=== PATIENT | female | born 1995 | race Caucasian/White ===

== ENCOUNTER 2021-05-30 08:32 | Emergency (ER) | payer MEDICAID, SELFPAY ==
[2021-05-30 08:38] VITALS: BP 155/90; PULSE 106; O2SAT 98
[2021-05-30 08:44] VITALS: BP 140/90; PULSE 100; RESP 18; TEMP 36.6; O2SAT 97; BMI 25.0
--- NOTE | 2021-05-30 10:01 | PC.NURSE ---
eating breakfast, nad
--- NOTE | 2021-05-30 11:29 | ED.GENADULT ---
HPI - General Adult General Chief complaint: General Medical Stated complaint: withdrawl Time Seen by Provider: 05/30/21 11:25 History of Present Illness HPI narrative: Patient is a 25-year-old female with a history of heroin abuse. Last use was 2 days prior. Patient presented today with having total body ache thinking that she can get detox here at [place]. Patient denies any fever chills. No cough no congestion or upper respiratory symptoms. Patient did not use any heroin for the last 36-48 hours. Does not think she is . Patient does not have any suicidal homicidal ideations. Wants to stop using drugs. Related Data Previous Rx's Medication Instructions Recorded ondansetron 4 mg disintegrating 4 mg PO TID PRN 5 Days #10 tab 05/30/21 tablet Allergies Allergy/AdvReac Type Severity Reaction Status Date / Time No Known Allergies Allergy Verified 05/30/21 11:28 Review of Systems Review of Systems: Positive generalized body ache positive nausea No fever no chills no coughing or congestion or upper respiratory symptoms All systems reviewed otherwise negative Yes all other systems are reviewed and are negative PENDING SALE TO [facility] Past Medical History Attestation statement: The following information was validated with the patient. Medical History Asthma Carpal tunnel syndrome Social History Social History Advance Directives: No Advance Directives Information Provided: No Patient : No Physical Exam Vital Signs: Vital Signs: Last Vital Signs Temp 98.2 F 05/30/21 13:33 Pulse 100 05/30/21 13:33 Resp 20 05/30/21 13:33 BP 111/71 05/30/21 13:33 Pulse Ox 98 05/30/21 13:33 Body Mass Index 25.0 Appearance: Alert. Oriented X3. No acute distress. Eyes: Pupils equal, round and reactive to light. ENT: Pharynx normal. Neck: Normal inspection. Neck supple. No lymph nodes noted. No crepitus CVS: Normal heart rate and rhythm. Pulses normal. Normal S1 and S2 Respiratory: No respiratory distress. Breath sounds normal. No Wheezing. No rales Abdomen: Soft and nontender. No rigidity. No distention. good BS x4 Skin: Skin warm and dry. Normal skin color. Normal skin turgor. Extremities: No lower extremity edema. Neurovascular intact to all extremities. No Lacerations. No Rash Neuro: Oriented X 3. No motor deficit. No sensory deficit. Moving all extermities. No slurred speech Medical Decision Making MDM Narrative Medical decision making narrative: Will give patient a dose of Suboxone. Will give some clonidine and Zofran for symptom support. We will go ahead and have patient get seen by substance abuse counseling. Discharge Plan Discharge Clinical Impression: Opioid abuse with withdrawal Patient Disposition: Home, Self-Care Instructions: Narcotic Withdrawal (ED), Narcotic Use Disorder (ED) Prescriptions: New ondansetron 4 mg tablet,disintegrating 4 mg PO TID PRN (Reason: nausea and vomiting) 5 Days Qty: 10 RF: 0 Referrals: Physician,None [Primary Care Provider] - 2 days (Please stop using recreational drugs. Please follow direction as per the drug abuse counselor.)
[2021-05-30 11:51] VITALS: BP 140/90; PULSE 100
[2021-05-30] MEDS: Ondansetron ODT 4 MG TAB.RAPDIS TRANSLINGU (11:51)
[2021-05-30] MEDS: cloNIDine HCL 0.1 MG TABLET PO (11:51)
[2021-05-30] MEDS: Buprenorphine/Naloxone 8/2 mg FILM 1 FILM SUBLINGUAL (11:51)
--- NOTE | 2021-05-30 11:54 | PC.NURSE ---
patient a&ox3, pt medicated per order, recovery team speaking with patient
--- NOTE | 2021-05-30 12:00 | MHC.RECOVRN ---
Met with pt in [facility] after request from provider. Pt reports last opiate use on Saturday and is currently experiencing withdrawal symptoms. Pt reports nausea, diarrhea, hot/cold. Pt given Suboxone, 8/2 mg, waiting for effect. Pt would like to go to [facility]. Case discussed with CARE Team as well as Tawny Marshall APRN.
[2021-05-30 13:33] VITALS: BP 111/71; PULSE 100; RESP 20; TEMP 36.8; O2SAT 98
== END 2021-05-30 14:50 | disposition home or self-care (01) ==
PROVIDERS: Emergency Provider Emergency Medicine Emergency Medical Services
DX: F11.13 Opioid abuse with withdrawal (principal); R11.0 Nausea; F32.9 Major depressive disorder, single episode, unspecified
CPT/HCPCS: 99283; 99284

== ENCOUNTER 2021-06-11 17:36 | Emergency (ER) | payer MEDICAID, SELFPAY ==
[2021-06-11 17:58] VITALS: BP 114/69; PULSE 97; RESP 20; TEMP 36.8; O2SAT 100
[2021-06-11 18:00] VITALS: RESP 16; BMI 24.2
--- NOTE | 2021-06-11 18:13 | PC.NURSE ---
patient states she has not had a period in 4 years, does not have a pharmacy because she is homeless and denies taking any prescribed medications
--- NOTE | 2021-06-11 18:16 | ED_ITS ---
HPI - Psych General Chief Complaint: Psychiatric Symptoms Stated Complaint: SI Time Seen by Provider: 06/11/21 18:15 Source: patient Mode of arrival: EMS Limitations: no limitations History of Present Illness HPI Narrative: Patient with history of substance abuse homeless since age 9 brought by EMS for feeling more depressed making suicidal statements with plan to overdose patient already use heroin earlier today denies any suicidal plan at this time cyst no place to live and will be okay if she finds a place to live Related Data Previous Rx's Medication Instructions Recorded ondansetron 4 mg disintegrating 4 mg PO TID PRN 5 Days #10 tab 05/30/21 tablet Allergies Allergy/AdvReac Type Severity Reaction Status Date / Time bee pollen [bee stings] Allergy Rash Verified 06/11/21 18:11 black pepper Allergy Rash Verified 06/11/21 18:11 latex Allergy Rash Verified 06/11/21 18:11 oxcarbazepine Allergy Rash Verified 06/11/21 18:12 [From Trileptal] red velvet cake Allergy Rash Uncoded 06/11/21 18:11 Review of Systems Review of Systems: Constitutional : No Fever, No Chills ENT/Mouth : No Ear Pain, No Nasal Congestion, No sore throat Eyes: No Eye Pain, No Swelling, No Redness Cardiovascular : No Chest Pain, No SOB Respiratory : No Cough, No Sputum, No Dyspnea Gastrointestinal : No Nausea, No Vomiting, No Diarrhea, No Hematochezia, No Melena Genitourinary : No Dysuria, No Urinary Frequency, No Hematuria Musculoskeletal : No Myalgias Skin : No Skin Lesions, No rash Neuro : No Weakness, No Numbness, No Paresthesias, No Dizziness, No Headache Psych : -ve Anxiety, positive Depression, positive SI Heme/Lymph: No Lymphadenopathy Endocrine : No Polyuria, No Polydipsia PMFSH Past Medical History Medical History Asthma Carpal tunnel syndrome Social History Social History Advance Directives: No Advance Directives Information Provided: No Patient : No Physical Exam Vital Signs: Vital Signs: Last Vital Signs Temp 99.0 F 06/11/21 20:34 Pulse 97 06/11/21 20:34 Resp 16 06/11/21 20:34 BP 114/69 06/11/21 20:34 Pulse Ox 98 06/11/21 20:34 Body Mass Index 24.2 Appearance: Alert. Oriented X3. No acute distress. Eyes: PERRLA, No Nystagmus ENT: Pharynx normal. Oral Mucosa moist Neck: Normal inspection. Neck supple. CVS: Normal heart rate and rhythm. Pulses normal. Respiratory: No respiratory distress. Equal air entry bilateral, no wheezing/rales/rhonchi Abdomen: Soft and nontender. Bowel sounds are present, no mass palpable, no CVA tenderness Skin: Skin warm and dry. Normal skin color. Normal skin turgor. IVDA track m arks Extremities: No lower extremity edema. No calf tenderness psych: No current suicidal ideation mood stable no hallucination or delusion Neuro: Oriented X 3. No motor deficit. No sensory deficit.No cerebellar signs , cranial nerves II-XII intact MDM - Psych Lab Data Attestation: I reviewed the patient's lab results. Result diagrams: 06/11/21 18:13 06/11/21 18:13 Labs: Lab Results 06/11/21 06/11/21 06/11/21 Range/Units 18:13 18:13 18:13 WBC 7.9 (4.8-10.8) X10*3/uL RBC 4.44 (4.20-5.50) X10*6/uL Hgb 11.7 L (12.0-16.0) g/dl Hct 36.8 L (37-47) % MCV 82.9 (80-98) fL MCH 26.4 L (27.0-33.0) pg MCHC 31.8 (31.0-35.0) g/dl RDW 15.7 (11.0-16.0) % Plt Count 245 (160-400) X10*3/uL MPV 9.0 L (9.4-12.3) fL Immature Gran % (Auto) 0.5 H (0.0-0.4) % Neut % (Auto) 69.9 (45-73) % Lymph % (Auto) 21.5 (20-40) % [place] % (Auto) 6.7 (2-11) % Eos % (Auto) 1.1 (0-4) % Baso % (Auto) 0.3 (0-2) % Lymph # (Auto) 1.7 (1.2-4.9) X10*3/uL [place] # (Auto) 0.5 (0.1-1.2) X10*3/uL Eos # (Auto) 0.1 (0.0-0.4) X10*3/uL Baso # (Auto) 0.0 (0.0-0.2) X10*3/uL Abs Immat Gran (auto) 0.04 H (0.00-0.03) X10*3/uL Absolute Neuts (auto) 5.6 (2.0-8.3) X10*3/uL Absolute Nucleated RBC 0.000 (0.0-0.012) X10*3/uL Nucleated RBC % (auto) 0.0 (0.0-0.2) /100WBC Sodium (135-145) mmol/L Potassium (3.3-5.1) mmol/L Chloride (96-108) mmol/L Carbon Dioxide (22-29) mmol/L Anion Gap (12-20) BUN (9-16) mg/dL Creatinine (0.5-1.4) mg/dL Estim Creat Clear Calc Estimated GFR Random Glucose (60-115) mg/dL Urine Test (NEGATIVE) Urine Opiates Screen POSITIVE H (Not Detect) Urine Fentanyl Screen POSITIVE H (Not Detect) Ur Barbiturates Screen Not Detected (Not Detect) Ur Phencyclidine Scrn Not Detected (Not Detect) Ur Amphetamines Screen Not Detected (Not Detect) U Benzodiazepines Scrn Not Detected (Not Detect) Urine Cocaine Screen POSITIVE H (Not Detect) U Marijuana (THC) Screen POSITIVE H (Not Detect) Ethyl Alcohol < 10 mg/dL COVID-19 ([facility]) (Negative) COVID-19 Clin Com 06/11/21 06/11/21 06/11/21 Range/Units 18:13 18:13 18:13 WBC (4.8-10.8) X10*3/uL RBC (4.20-5.50) X10*6/uL Hgb (12.0-16.0) g/dl Hct (37-47) % MCV (80-98) fL MCH (27.0-33.0) pg MCHC (31.0-35.0) g/dl RDW (11.0-16.0) % Plt Count (160-400) X10*3/uL MPV (9.4-12.3) fL Immature Gran % (Auto) (0.0-0.4) % Neut % (Auto) (45-73) % Lymph % (Auto) (20-40) % [place] % (Auto) (2-11) % Eos % (Auto) (0-4) % Baso % (Auto) (0-2) % Lymph # (Auto) (1.2-4.9) X10*3/uL [place] # (Auto) (0.1-1.2) X10*3/uL Eos # (Auto) (0.0-0.4) X10*3/uL Baso # (Auto) (0.0-0.2) X10*3/uL Abs Immat Gran (auto) (0.00-0.03) X10*3/uL Absolute Neuts (auto) (2.0-8.3) X10*3/uL Absolute Nucleated RBC (0.0-0.012) X10*3/uL Nucleated RBC % (auto) (0.0-0.2) /100WBC Sodium 139 (135-145) mmol/L Potassium 4.0 (3.3-5.1) mmol/L Chloride 104 (96-108) mmol/L Carbon Dioxide 27 (22-29) mmol/L Anion Gap 12 (12-20) BUN 29 H (9-16) mg/dL Creatinine 0.88 (0.5-1.4) mg/dL Estim Creat Clear Calc 89.8 Estimated GFR > 60 Random Glucose 76 (60-115) mg/dL Urine Test NEGATIVE (NEGATIVE) Urine Opiates Screen (Not Detect) Urine Fentanyl Screen (Not Detect) Ur Barbiturates Screen (Not Detect) Ur Phencyclidine Scrn (Not Detect) Ur Amphetamines Screen (Not Detect) U Benzodiazepines Scrn (Not Detect) Urine Cocaine Screen (Not Detect) U Marijuana (THC) Screen (Not Detect) Ethyl Alcohol mg/dL COVID-19 ([facility]) Negative (Negative) COVID-19 Clin Com See Note Discharge Plan Discharge Clinical Impression: Polysubstance abuse Depression Qualifiers: Depression Type: major depressive disorder Major depression recurrence: recurrent Active/Remission status: currently active Major depression episode severity: moderate Qualified Code(s): F33.1 - Major depressive disorder, recurr ent, moderate Prescriptions: No Action ondansetron 4 mg tablet,disintegrating 4 mg PO TID PRN (Reason: nausea and vomiting) 5 Days Qty: 10 RF: 0
[2021-06-11 18:19] LABS: MANUAL DIFF FLAG NO
[2021-06-11 18:24] LABS: UPreg QC Valid YES; Urine Pregnancy NEGATIVE (NEGATIVE)
[2021-06-11 18:35] LABS: COVID-19 Test Negative (Negative); IDNOW Serial# 9DD0AD1C
[2021-06-11 18:37] LABS: Ethanol < 10 mg/dL
[2021-06-11 18:46] LABS: Basophils Percent Auto 0.3 % (0-2); Eosinophils Absolute Auto 0.1 X10*3/uL (0.0-0.4); Eosinophils Percent Auto 1.1 % (0-4); Hematocrit 36.8 % (37-47); Hemoglobin 11.7 g/dl (12.0-16.0); Imm Gran Abs Auto 0.04 X10*3/uL (0.00-0.03); Imm Gran Pct Auto 0.5 % (0.0-0.4); Lymphocytes Absolute Auto 1.7 X10*3/uL (1.2-4.9); Lymphocytes Percent Auto 21.5 % (20-40); Mean Corpuscular HGB Conc 31.8 g/dl (31.0-35.0); Mean Corpuscular Hemoglobin 26.4 pg (27.0-33.0); Mean Corpuscular Volume 82.9 fL (80-98); Monocytes Absolute Auto 0.5 X10*3/uL (0.1-1.2); Monocytes Percent Auto 6.7 % (2-11); Neutrophils Absolute Auto 5.6 X10*3/uL (2.0-8.3); Neutrophils Percent Auto 69.9 % (45-73); Platelet Count 245 X10*3/uL (160-400); Red Blood Count 4.44 X10*6/uL (4.20-5.50); Red Cell Distribution Width 15.7 % (11.0-16.0); White Blood Count 7.9 X10*3/uL (4.8-10.8)
[2021-06-11 18:50] LABS: Amphetamine Screen Urine Not Detected (Not Detect); Barbiturates, Urine Not Detected (Not Detect); Benzodiazepines Screen Urine Not Detected (Not Detect); Cannabinoid Screen Urine POSITIVE (Not Detect); Cocaine Screen Urine POSITIVE (Not Detect); Fentanyl, urine POSITIVE (Not Detect); Opiate Screen Urine POSITIVE (Not Detect); Phencyclidine Screen Urine Not Detected (Not Detect)
[2021-06-11 18:51] LABS: Anion Gap 12 (12-20); Blood Urea Nitrogen 29 mg/dL (9-16); Carbon Dioxide 27 mmol/L (22-29); Chloride 104 mmol/L (96-108); Creatinine Clr Calc Pharmacy 89.8; Estimated Glomerular Filt Rate > 60; Glucose Random 76 mg/dL (60-115); Sodium 139 mmol/L (135-145)
--- NOTE | 2021-06-11 19:54 | PC.NURSE ---
This RN contacted [facility] and spoke to Linda who took pt's name and and stated that intake was complete. This RN informed Linda that phone intakes, in the past, have required more information than just pt's name and and that this RN usually speak to Allyssa Marie. Linda gave this RN the phone number to Cassidy at [facility] who has the same position as Allyssa Marie but during these hours. This RN contacted Cassidy at [facility] who did phone intake. Cassidy then stated pt has been added onto a list to be seen by [facility] and Cassidy will call this RN to notify of [facility]'s ETA.
--- NOTE | 2021-06-11 20:29 | MHC.CARE ---
CARE Team attempted to meet with Pt multiple times. Pt reports she is experiencing withdrawal symptoms and able to engage with t/w. Pt fell asleep multiple times and was not assessable at time of intervention. CARE Team spoke with Dr. Viramontes, plan for Pt to remain in ED overnight pending outcome of a BHN or CARE Team assessment. CARE Team verified Pt is on BHNs list - no ETA given at this time.
[2021-06-11 20:34] VITALS: BP 114/69; PULSE 97; RESP 16; TEMP 37.2; O2SAT 98
--- NOTE | 2021-06-11 23:46 | PC.NURSE ---
Patient in bed appears sleeping, no distress observed/reported, BHN called/spoke with Ammy, confirmed without ETA at this time, will continue to monitor.
[2021-06-12 01:19] VITALS: BP 115/73; PULSE 80; RESP 16; TEMP 36.2; O2SAT 98
[2021-06-12 01:51] VITALS: BP 115/73; PULSE 80
[2021-06-12] MEDS: cloNIDine HCL 0.1 MG TABLET PO (01:51)
--- NOTE | 2021-06-12 06:34 | PC.NURSE ---
Patient slept through the night, patient is currently asymptomatic of opiates withdrawal but patient reported subjective withdrawal, one time Clonidine 0.1 mg administered as ordered with + effect, patient assessed by N overnight and patient was compliant, per N patient's disposition is section 12 inpatient bed search, behavior appropriate, VSS, appetite adequate, elimination intact, will continue to monitor.
[2021-06-12] MEDS: Ondansetron ODT 4 MG TAB.RAPDIS TRANSLINGU ×2 (09:18→17:01)
[2021-06-12] MEDS: LORazepam 1 MG TABLET 2 MG PO (12:33)
[2021-06-12 14:45] VITALS: BP 130/86; PULSE 85; RESP 16; TEMP 36.5; O2SAT 97
[2021-06-12] MEDS: diphenhydrAMINE HCL 25 MG TABLET 50 MG PO (17:01)
[2021-06-12] MEDS: Ibuprofen 800 MG TABLET PO (17:01)
[2021-06-12] MEDS: Cyclobenzaprine HCl 10 MG TABLET PO (18:35)
[2021-06-13 06:40] VITALS: BP 96/55; PULSE 80; TEMP 36.3; O2SAT 98
--- NOTE | 2021-06-13 07:06 | PC.NURSE ---
Patient slept through the night, no distress observed/reported, ARELIS Blanco called last night and notified us that Ne is considering her admission, Ne called us reported that patient has been accepted but no ETA at this time, information relayed to incoming RN Sofi, RN to RN completed, VSS, behavior appropriate, will continue to monitor.
--- NOTE | 2021-06-13 07:17 | PC.NURSE ---
patient appears to remain at rest at present respirations even and unlabored, patient appears in no distress.
[2021-06-13] MEDS: hydrOXYzine HCL 50 MG TABLET PO (09:40)
[2021-06-13] MEDS: Ondansetron ODT 4 MG TAB.RAPDIS TRANSLINGU (09:41)
[2021-06-13] MEDS: Cyclobenzaprine HCl 10 MG TABLET PO (09:51)
== END 2021-06-13 14:05 ==
PROVIDERS: Emergency Provider Internal Medicine
DX: F33.1 Major depressive disorder, recurrent, moderate (principal); R45.851 Suicidal ideations; Z20.822 Contact with and (suspected) exposure to COVID-19; Z79.899 Other long term (current) drug therapy; Z59.0 Homelessness
CPT/HCPCS: 36415; 80051; 80307; 81025; 82077; 82565; 82947; 84520; 85025; 87635; 99285; Q0163